=== PATIENT | female | born 1960 | race Caucasian/White ===

== ENCOUNTER 2021-06-04 14:00 | Inpatient (IN) | payer BC, OTHER ==
[2021-06-04] MEDS ORDERED: Sodium Chloride 0.9% 10 ML Syringe FLUSH PRN (15:55)
--- NOTE | 2021-06-04 16:16 | EDM.PDOC ---
ED HPI GENERAL MEDICAL PROBLEM - General Chief Complaint: Respiratory Problem Stated Complaint: Fever Time Seen by Provider: 06/04/21 14:54 Source of Information: Reports: Patient History Limitations: Reports: No Limitations - History of Present Illness INITIAL COMMENTS - FREE TEXT/NARRATIVE: 60-year-old female [facility] after testing positive for Covid. Patient states that her symptoms started 6 days ago. She states she develop fever, chills, nausea, diarrhea, decreased appetite, headache and generalized body aches. 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 Patient was sent here from [facility] with recommendation that she receive monoclonal antibody treatment. She has not had her Covid vaccine. Other Treatments ADMINISTRATIVE ASSISTANT DATA ENTRY: Didn't take anything for her symptoms today, so we'd see that she has them. - Related Data Allergies Allergy/AdvReac Type Severity Reaction Status Date / Time No Known Allergies Allergy Verified 06/04/21 19:08 Home Meds: Home Meds Escitalopram Oxalate 20 mg PO DAILY 06/04/21 [History] Ondansetron [Zofran ODT] 4 mg PO Q4H PRN 06/04/21 [History] Rivaroxaban [Xarelto] 20 mg PO DAILY 06/04/21 [History] rOPINIRole [Requip] 0.5 mg PO BEDTIME 06/04/21 [History] Albuterol [Proventil HFA] 2 puff INH Q2H PRN #1 inhaler 06/06/21 [Rx] Benzonatate [Tessalon Perles] 100 mg PO TID PRN #20 cap 06/06/21 [Rx] Cholecalciferol (Vitamin D3) [Vitamin D] 5,000 unit PO DAILY #20 tablet 06/06/21 [Rx] Dextromethorphan/guaiFENesin [Robitussin DM] 10 ml PO TID PRN #150 ml 06/06/21 [Rx] Zinc Sulfate [Zincate] 220 mg PO DAILY #20 cap 06/06/21 [Rx] dexAMETHasone [Dexamethasone] 6 mg PO DAILY 6 Days #9 tablet 06/06/21 [Rx] Past Medical History Cardiovascular History: Reports: Blood Clots/VTE/DVT Other Cardiovascular History: DVT to left leg-from knee to the groin, after a surgery Psychiatric History: Reports: Depression - Past Surgical History GI Surgical History: Reports: Cholecystectomy Musculoskeletal Surgical History: Reports: Arthroscopic Knee Other Musculoskeletal Surgeries/Procedures:: Left knee - Meniscus repair Social & Family History - Tobacco Use Tobacco Use Status *Q: Never Tobacco User - Caffeine Use Caffeine Use: Reports: None ED ROS GENERAL - Review of Systems Review Of Systems: Comprehensive ROS is negative, except as noted in HPI. ED EXAM, GENERAL - Physical Exam Exam: See Below Exam Limited By: No Limitations General Appearance: Alert, WD/WN, Moderate Distress Ears: Normal External Exam, Hearing Grossly Normal Nose: Normal Inspection Throat/Mouth: Normal Inspection, Normal Lips, Normal Voice, No Airway Compromise Head: Atraumatic Neck: Normal Inspection, Supple Respiratory/Chest: No Respiratory Distress, No Accessory Muscle Use, Chest Non- Tender, Decreased Breath Sounds, Crackles (Fine crackles noted to bilateral bases) Cardiovascular: Normal Peripheral Pulses, Regular Rate, Rhythm, No Edema, No Murmur Peripheral Pulses: 2+: Radial (L), Radial (R) GI/Abdominal: Normal Bowel Sounds, Soft, Non-Tender, No Distention (Female) Exam: Deferred Rectal (Female) Exam: Deferred Back Exam: Normal Inspection Extremities: Normal Inspection Neurological: Alert, Oriented, Normal Cognition Psychiatric: Normal Affect, Normal Mood Skin Exam: Warm, Dry, Intact, Normal Color, No Rash Lymphatic: No Adenopathy #1 Interpretation EKG Date: 06/04/21 Time: 16:06 Rhythm: NSR Rate (Beats/Min): 81 [place]: Normal P-Wave: Present QRS: Normal ST-T: Normal QT: Normal Comparison: NA - No Prior EKG EKG Interpretation Comments: Sinus rhythm at 81 bpm; probable left atrial enlargement; repolarization abnormality, severe global ischemia Course - Vital Signs Text/Narrative:: Physical exam reveals an ill-appearing white female. Lung sounds are diminished with fine crackles noted bilaterally. Remainder physical exam is otherwise unremarkable. O2 saturations are 95% on room air at the time of my evaluation. Will obtain a portable chest x-ray, EKG, lab studies to include a CBC, CMP, magnesium, C-reactive protein, D-dimer and troponin level. She was also directed to take her Xarelto dose from her home meds at the time of my exam. Last Recorded V/S: Last Vital Signs Temp 98.4 F 06/06/21 11:16 Pulse 53 L 06/06/21 11:16 Resp 20 06/06/21 11:16 BP 128/61 06/06/21 11:16 Pulse Ox 95 06/06/21 11:16 - Orders/Labs/Meds Labs: Laboratory Tests 06/04/21 06/04/21 06/04/21 Range/Units 16:10 16:10 16:10 WBC 3.88 L (3.98-10.04) K/mm3 RBC 4.48 (3.98-5.22) M/mm3 Hgb 13.4 (11.2-15.7) gm/dl Hct 41.4 (34.1-44.9) % MCV 92.4 (79.4-94.8) fl MCH 29.9 (25.6-32.2) pg MCHC 32.4 (32.2-35.5) g/dl RDW Std Deviation 46.4 H (36.4-46.3) fL Plt Count 178 L (182-369) K/mm3 MPV 10.4 (9.4-12.3) fl Neut % (Auto) 75.4 H (34.0-71.1) % Lymph % (Auto) 19.6 (19.3-51.7) % [place] % (Auto) 4.4 L (4.7-12.5) % Eos % (Auto) 0 L (0.7-5.8) Baso % (Auto) 0.3 (0.1-1.2) % Neut # (Auto) 2.93 (1.56-6.13) K/mm3 Lymph # (Auto) 0.76 L (1.18-3.74) K/mm3 [place] # (Auto) 0.17 L (0.24-0.36) K/mm3 Eos # (Auto) 0.00 L (0.04-0.36) K/mm3 Baso # (Auto) 0.01 (0.01-0.08) K/mm3 D-Dimer, Quantitative 0.33 (0.19-0.50) mg/L Sodium 138 (136-145) mEq/L Potassium 3.1 L (3.5-5.1) mEq/L Chloride 101 (98-107) mEq/L Carbon Dioxide 26 (21-32) mEq/L Anion Gap 14.1 (5-15) BUN 11 (7-18) mg/dL Creatinine 0.8 (0.55-1.02) mg/dL Est Cr Clr Drug Dosing 62.96 mL/min Estimated GFR (MDRD) > 60 (>60) mL/min BUN/Creatinine Ratio 13.8 L (14-18) Glucose 113 H (70-99) mg/dL Calcium 7.4 L (8.5-10.1) mg/dL Magnesium 1.8 (1.8-2.4) mg/dL Total Bilirubin 0.4 (0.2-1.0) mg/dL AST 81 H (15-37) U/L ALT 89 H (14-59) U/L Alkaline Phosphatase 76 (46-116) U/L Troponin I (0.00-0.056) ng/mL C-Reactive Protein 3.9 H* (<1.0) mg/dL Total Protein 6.4 (6.4-8.2) g/dl Albumin 3.3 L (3.4-5.0) g/dl Globulin 3.1 gm/dL Albumin/Globulin Ratio 1.1 (1-2) 06/04/21 Range/Units 16:10 WBC (3.98-10.04) K/mm3 RBC (3.98-5.22) M/mm3 Hgb (11.2-15.7) gm/dl Hct (34.1-44.9) % MCV (79.4-94.8) fl MCH (25.6-32.2) pg MCHC (32.2-35.5) g/dl RDW Std Deviation (36.4-46.3) fL Plt Count (182-369) K/mm3 MPV (9.4-12.3) fl Neut % (Auto) (34.0-71.1) % Lymph % (Auto) (19.3-51.7) % [place] % (Auto) (4.7-12.5) % Eos % (Auto) (0.7-5.8) Baso % (Auto) (0.1-1.2) % Neut # (Auto) (1.56-6.13) K/mm3 Lymph # (Auto) (1.18-3.74) K/mm3 [place] # (Auto) (0.24-0.36) K/mm3 Eos # (Auto) (0.04-0.36) K/mm3 Baso # (Auto) (0.01-0.08) K/mm3 D-Dimer, Quantitative (0.19-0.50) mg/L Sodium (136-145) mEq/L Potassium (3.5-5.1) mEq/L Chloride (98-107) mEq/L Carbon Dioxide (21-32) mEq/L Anion Gap (5-15) BUN (7-18) mg/dL Creatinine (0.55-1.02) mg/dL Est Cr Clr Drug Dosing mL/min Estimated GFR (MDRD) (>60) mL/min BUN/Creatinine Ratio (14-18) Glucose (70-99) mg/dL Calcium (8.5-10.1) mg/dL Magnesium (1.8-2.4) mg/dL Total Bilirubin (0.2-1.0) mg/dL AST (15-37) U/L ALT (14-59) U/L Alkaline Phosphatase (46-116) U/L Troponin I < 0.017 (0.00-0.056) ng/mL C-Reactive Protein (<1.0) mg/dL Total Protein (6.4-8.2) g/dl Albumin (3.4-5.0) g/dl Globulin gm/dL Albumin/Globulin Ratio (1-2) Meds: Medications Discontinued Medications Generic Name Dose Route Start Last Admin Trade Name Freq PRN Reason Stop Dose Admin Acetaminophen 650 mg 06/04/21 17:35 06/06/21 09:29 Acetaminophen 325 Mg Tab PO 650 mg Q4H PRN Administration Pain (Mild 1-3)/fever Albuterol 0 gm 06/06/21 10:33 Albuterol 6.7 Gm Inhaler INH Q2H PRN SOB/Wheezing Albuterol/Ipratropium 3 ml 06/04/21 17:35 06/05/21 21:30 Albuterol/Ipratropium 3.0-0.5 Mg/3 Ml Neb Soln NEB 3 ml Q4H PRN Administration Shortness Of Breath/wheezing Citalopram Hydrobromide 40 mg 06/05/21 09:00 06/06/21 09:30 Citalopram 20 Mg Tab PO 40 mg DAILY SULLY Administration Dexamethasone 6 mg 06/04/21 17:16 06/04/21 17:50 Dexamethasone 6 Mg Tablet PO 06/04/21 17:17 6 mg ONETIME ONE Administration Dexamethasone 6 mg 06/05/21 09:00 06/06/21 09:31 Dexamethasone 6 Mg Tablet PO 06/13/21 09:01 6 mg DAILY SULLY Administration Docusate Sodium 100 mg 06/04/21 17:35 Docusate Sodium 100 Mg Cap PO BID PRN Constipation Remdesivir 200 mg/ Sodium 250 mls @ 250 mls/hr 06/04/21 17:16 06/04/21 17:45 Chloride IV 06/04/21 18:15 250 mls/hr ONETIME ONE Administration Remdesivir 100 mg/ Sodium 250 mls @ 250 mls/hr 06/05/21 18:00 06/05/21 18:05 Chloride IV 06/08/21 18:59 250 mls/hr Q24H SULLY Administration Sodium Chloride 1,000 mls @ 150 mls/hr 06/04/21 18:15 06/05/21 02:53 Normal Saline IV 150 mls/hr ASDIRECTED SULLY Administration Morphine Sulfate 2 mg 06/04/21 17:35 Morphine 2 Mg/Ml Syringe IVPUSH 06/05/21 17:35 Q2H PRN Pain (severe 7-10) Ondansetron HCl 4 mg 06/04/21 17:35 Ondansetron 4 Mg Tab.Dis PO Q4H PRN nausea, able to take PO Oxycodone HCl 5 mg 06/04/21 17:35 06/04/21 21:27 Oxycodone 5 Mg Tab PO 5 mg Q4H PRN Administration Pain (moderate 4-6) Potassium Chloride 40 meq 06/06/21 10:32 06/06/21 11:13 Potassium Chloride 20 Meq Tab.Er PO 06/06/21 10:33 40 meq ONETIME ONE Administration Rivaroxaban 15 mg 06/05/21 17:00 Rivaroxaban 15 Mg Tab [facility] Rivaroxaban 20 mg 06/05/21 10:00 06/06/21 09:31 Rivaroxaban 10 Mg Tab PO 20 mg DAILY@1000 [facility] Administration Ropinirole HCl 0.5 mg 06/04/21 21:00 06/05/21 21:13 Ropinirole 0.25 Mg Tab PO 0.5 mg BEDTIME SULLY Administration Sodium Chloride 10 ml 06/04/21 15:55 06/04/21 16:17 Sodium Chloride 0.9% 10 Ml Syringe FLUSH 10 ml ASDIRECTED PRN Administration Keep Vein Open Temazepam 15 mg 06/04/21 17:35 Temazepam 15 Mg Cap PO BEDTIME PRN Sleep Zinc Sulfate 220 mg 06/06/21 10:45 06/06/21 11:12 Zinc Sulfate 220 Mg Cap PO 220 mg DAILY SULLY Administration - Radiology Interpretation Free Text/Narrative:: Portable chest x-ray was reviewed and there are areas of infiltrate noted to right middle and lower lobe as well as left lower lobe. - Re-Assessments/Exams Free Text/Narrative Re-Assessment/Exam: 06/04/21 17:19 Hematology reveals a WBC of 3.88 D-dimer 0.33 Sodium 138, potassium 3.1, carbon dioxide 26, anion gap 14.1, BUN 11, creatinine 0.8, GFR greater than 60, glucose 113, calcium 7.4, magnesium 1.8, AST 81, ALT 89, alk phos 76, troponin less than 0.017, C-reactive protein 3.9 Nursing staff notifies me that patient's O2 saturations have consistently been 87 to 88% on room air. They have applied oxygen at 1 L per nasal cannula which has increased her saturation to 92%. She is no longer a candidate for monoclon al antibodies. I do feel this patient needs to be admitted. I spoken to the hospitalist, Dr. Zee, who agrees to accept her as an admit. I have ordered remdesivir and dexamethasone per his request. Departure - Departure Time of Disposition: 19:00 Disposition: Admitted As Inpatient 64 Condition: Good Clinical Impression: COVID-19, Hyponatremia - Discharge Information Sepsis Event Note (ED) - Evaluation Sepsis Screening Result: No Definite Risk
[2021-06-04] MEDS ORDERED: Dexamethasone 6 MG TABLET PO ONE (17:16)
[2021-06-04] MEDS ORDERED: REMDESIVIR 200 MG in Sodium Chloride 0.9% 250 ML IV ONE (17:16)
--- NOTE | 2021-06-04 17:34 | PCM.HP.2 ---
H&P History of Present Illness - General Date of Service: 06/05/21 Admit Problem/Dx: Admission Diagnosis/Problem Admission Diagnosis/Problem Hypoxemia Source of Information: Patient History Limitations: Reports: No Limitations - History of Present Illness Initial Comments - Free Text/Narative: The patient is a 60-year-old lady who had been sent to the ER from walk-in clinic due to hypoxia and testing positive for COVID-19. The patient says that she had been sick approximately 1 week ago. She reports that she has had severe nausea and vomiting along with fever and chills. The patient has not had the COVID-19 vaccination. The patient says that she has been unable to take any of her medications and she has been on Xarelto due to DVT. Interestingly the patient also reports that she has had a Morena type filter for venous thrombus. The patient also has been reported to have spouse who is sick. The patient also says that she has alterations in her taste and smell. Onset of Symptoms: Reports: Gradual Duration of Symptoms: Reports: Day(s):, Getting Worse Location: Reports: Chest, Abdomen Quality: Reports: Ache Severity: Mild Improves with: Reports: Rest Worsens with: Reports: Eating Context: Reports: Sick Contact, Other (COVID-19 infection) Associated Symptoms: Reports: cough w sputum, Nausea/Vomiting - Related Data Allergies/Adverse Reactions: Allergies Allergy/AdvReac Type Severity Reaction Status Date / Time No Known Allergies Allergy Verified 06/04/21 19:08 Home Medications: Home Meds Escitalopram Oxalate 20 mg PO DAILY 06/04/21 [History] Ondansetron [Zofran ODT] 4 mg PO Q4H PRN 06/04/21 [History] Rivaroxaban [Xarelto] 20 mg PO DAILY 06/04/21 [History] rOPINIRole [Requip] 0.5 mg PO BEDTIME 06/04/21 [History] Past Medical History HEENT History: Reports: None Cardiovascular History: Reports: Blood Clots/VTE/DVT, Other (See Below) (Morena filter in place) Other Cardiovascular History: DVT to left leg-from knee to the groin, after a surgery Respiratory History: Reports: None Gastrointestinal History: Reports: None Genitourinary History: Reports: None Musculoskeletal History: Reports: None Neurological History: Reports: None Psychiatric History: Reports: Depression Endocrine/Metabolic History: Reports: None Hematologic History: Reports: None Immunologic History: Reports: None Oncologic (Cancer) History: Reports: None - Past Surgical History GI Surgical History: Reports: Cholecystectomy Musculoskeletal Surgical History: Reports: Arthroscopic Knee Other Musculoskeletal Surgeries/Procedures:: Left knee - Meniscus repair Social & Family History - Tobacco Use Tobacco Use Status *Q: Never Tobacco User - Caffeine Use Caffeine Use: Reports: None - Living Situation & Occupation Living situation: Reports: , with Spouse Occupation: Other H&P Review of Systems - Review of Systems: Review Of Systems: See Below General: Reports: Fever, Chills, Weakness, Fatigue HEENT: Reports: No Symptoms Pulmonary: Reports: Shortness of Breath, Cough, Sputum Cardiovascular: Reports: No Symptoms Gastrointestinal: Reports: Anorexia, Nausea, Vomiting Genitourinary: Reports: No Symptoms Musculoskeletal: Reports: No Symptoms Skin: Reports: No Symptoms Psychiatric: Reports: No Symptoms Neurological: Reports: No Symptoms Hematologic/Lymphatic: Reports: No Symptoms Immunologic: Reports: No Symptoms Exam - Exam Exam: See Below - Vital Signs Vital Signs: Last Vital Signs Temp 37.7 C 06/04/21 15:01 Pulse 76 06/04/21 15:01 Resp 24 H 06/04/21 15:01 BP 151/76 H 06/04/21 15:01 Pulse Ox 94 L 06/04/21 15:01 Weight: 81.193 kg - Exam Quality Assessment: Supplemental Oxygen, DVT Prophylaxis General: Alert, Oriented, Cooperative, Mild Distress HEENT: Conjunctiva Clear, EACs Clear, EOMI, PERRLA. No: Mucosa Moist & [place] (Dry) Neck: Supple, Trachea Midline Lungs: Decreased Breath Sounds, Rales Cardiovascular: Regular Rate, Regular Rhythm GI/Abdominal Exam: Normal Bowel Sounds, Soft, Non-Tender, No Distention (Female) Exam: Deferred Rectal (Female) Exam: Deferred Back Exam: Normal Inspection, Full Range of Motion Extremities: Normal Inspection, No Pedal Edema Skin: Warm, Dry, Intact Neurological: Cranial Nerves Intact, Reflexes Equal Bilateral, Normal Gait, Normal Speech Psychiatric: Alert, Normal Affect, Normal Mood - Patient Data Lab Results Last 24 hrs: Laboratory Results - last 24 hr 06/04/21 06/04/21 06/04/21 Range/Units 16:10 16:10 16:10 WBC 3.88 L (3.98-10.04) K/mm3 RBC 4.48 (3.98-5.22) M/mm3 Hgb 13.4 (11.2-15.7) gm/dl Hct 41.4 (34.1-44.9) % MCV 92.4 (79.4-94.8) fl MCH 29.9 (25.6-32.2) pg MCHC 32.4 (32.2-35.5) g/dl RDW Std Deviation 46.4 H (36.4-46.3) fL Plt Count 178 L (182-369) K/mm3 MPV 10.4 (9.4-12.3) fl Neut % (Auto) 75.4 H (34.0-71.1) % Lymph % (Auto) 19.6 (19.3-51.7) % [place] % (Auto) 4.4 L (4.7-12.5) % Eos % (Auto) 0 L (0.7-5.8) Baso % (Auto) 0.3 (0.1-1.2) % Neut # (Auto) 2.93 (1.56-6.13) K/mm3 Lymph # (Auto) 0.76 L (1.18-3.74) K/mm3 [place] # (Auto) 0.17 L (0.24-0.36) K/mm3 Eos # (Auto) 0.00 L (0.04-0.36) K/mm3 Baso # (Auto) 0.01 (0.01-0.08) K/mm3 D-Dimer, Quantitative 0.33 (0.19-0.50) mg/L Sodium 138 (136-145) mEq/L Potassium 3.1 L (3.5-5.1) mEq/L Chloride 101 (98-107) mEq/L Carbon Dioxide 26 (21-32) mEq/L Anion Gap 14.1 (5-15) BUN 11 (7-18) mg/dL Creatinine 0.8 (0.55-1.02) mg/dL Est Cr Clr Drug Dosing 62.96 mL/min Estimated GFR (MDRD) > 60 (>60) mL/min BUN/Creatinine Ratio 13.8 L (14-18) Glucose 113 H (70-99) mg/dL Calcium 7.4 L (8.5-10.1) mg/dL Magnesium 1.8 (1.8-2.4) mg/dL Total Bilirubin 0.4 (0.2-1.0) mg/dL AST 81 H (15-37) U/L ALT 89 H (14-59) U/L Alkaline Phosphatase 76 (46-116) U/L Troponin I (0.00-0.056) ng/mL C-Reactive Protein 3.9 H* (<1.0) mg/dL Total Protein 6.4 (6.4-8.2) g/dl Albumin 3.3 L (3.4-5.0) g/dl Globulin 3.1 gm/dL Albumin/Globulin Ratio 1.1 (1-2) 06/04/21 Range/Units 16:10 WBC (3.98-10.04) K/mm3 RBC (3.98-5.22) M/mm3 Hgb (11.2-15.7) gm/dl Hct (34.1-44.9) % MCV (79.4-94.8) fl MCH (25.6-32.2) pg MCHC (32.2-35.5) g/dl RDW Std Deviation (36.4-46.3) fL Plt Count (182-369) K/mm3 MPV (9.4-12.3) fl Neut % (Auto) (34.0-71.1) % Lymph % (Auto) (19.3-51.7) % [place] % (Auto) (4.7-12.5) % Eos % (Auto) (0.7-5.8) Baso % (Auto) (0.1-1.2) % Neut # (Auto) (1.56-6.13) K/mm3 Lymph # (Auto) (1.18-3.74) K/mm3 [place] # (Auto) (0.24-0.36) K/mm3 Eos # (Auto) (0.04-0.36) K/mm3 Baso # (Auto) (0.01-0.08) K/mm3 D-Dimer, Quantitative (0.19-0.50) mg/L Sodium (136-145) mEq/L Potassium (3.5-5.1) mEq/L Chloride (98-107) mEq/L Carbon Dioxide (21-32) mEq/L Anion Gap (5-15) BUN (7-18) mg/dL Creatinine (0.55-1.02) mg/dL Est Cr Clr Drug Dosing mL/min Estimated GFR (MDRD) (>60) mL/min BUN/Creatinine Ratio (14-18) Glucose (70-99) mg/dL Calcium (8.5-10.1) mg/dL Magnesium (1.8-2.4) mg/dL Total Bilirubin (0.2-1.0) mg/dL AST (15-37) U/L ALT (14-59) U/L Alkaline Phosphatase (46-116) U/L Troponin I < 0.017 (0.00-0.056) ng/mL C-Reactive Protein (<1.0) mg/dL Total Protein (6.4-8.2) g/dl Albumin (3.4-5.0) g/dl Globulin gm/dL Albumin/Globulin Ratio (1-2) Result Diagrams: 06/05/21 07:18 06/04/21 16:10 Sepsis Event Note - Evaluation Sepsis Screening Result: No Definite Risk - Focused Exam Vital Signs: Vital Signs Temp Pulse Resp BP Pulse Ox 06/04/21 15:01 37.7 C 76 24 H 151/76 H 94 L - Problem List (1) Acute respiratory failure due to COVID-19 SNOMED Code(s): 725623724 ICD Code: U07.1 - COVID-19; J96.00 - ACUTE RESPIRATORY FAILURE, UNSP W HYPOXIA OR HYPERCAPNIA Status: Acute Priority: High Current Visit: Yes (2) History of DVT (deep vein thrombosis) SNOMED Code(s): 242067209 ICD Code: Z86.718 - PERSONAL HISTORY OF OTHER VENOUS THROMBOSIS AND EMBOLISM Status: Chronic Priority: High Current Visit: Yes Problem Details: The patient was off of her Xarelto for approximately 1 week due to nausea and vomiting (3) COVID-19 SNOMED Code(s): 976288835 ICD Code: U07.1 - COVID-19 Status: Acute Priority: High Current Visit: Yes (4) Hyponatremia SNOMED Code(s): 22245708 ICD Code: E87.1 - HYPO-OSMOLALITY AND HYPONATREMIA Status: Acute Priority: High Current Visit: Yes (5) Leukopenia SNOMED Code(s): 36162494, 307610628 ICD Code: D72.819 - DECREASED WHITE BLOOD CELL COUNT, UNSPECIFIED Status: Acute Priority: High Current Visit: Yes Qualifiers: Leukopenia type: neutropenia Neutropenia type: due to infection Qualified Code(s): D70.3 - Neutropenia due to infection (6) Transaminitis SNOMED Code(s): 780323098, 078544402 ICD Code: R74.01 - ELEVATION OF LEVELS OF LIVER TRANSAMINASE LEVELS Status: Acute Priority: High Current Visit: Yes Problem List Initiated/Reviewed/Updated: Yes Orders Last 24hrs: Active Orders 24 hr Category Date Time Status Admission Status [Patient Status] [ADT] Routine ADT 06/04/21 17:22 Active Chest 1V Frontal [CR] Stat Exams 06/04/21 15:55 Taken Sodium Chloride 0.9% [Saline Flush] Med 06/04/21 15:55 Active 10 ml FLUSH ASDIRECTED PRN Saline Lock Insert [OM.PC] Stat Oth 06/04/21 15:55 Ordered Medication Orders Sodium Chloride (Sodium Chloride 0.9% 10 Ml Syringe) 10 ml FLUSH ASDIRECTED PRN PRN Reason: Keep Vein Open Last Admin: 06/04/21 16:17 Dose: 10 ml Documented by: CHIO Assessment/Plan Comment:: The patient is a 60-year-old lady who has been admitted to acute hospitalization secondary to respiratory failure associated with COVID-19 infection. The patient has been started on remdesivir 100 mg IV. She is also been started on dexamethasone 6 mg p.o. daily. Patient will have her Xarelto restarted for DVT protection. The patient will be kept on IV fluids of normal saline at 150 mL/h due to hypovolemia. The patient has been noted to have mild leukopenia likely secondary to the COVID-19 infection. Repeat laboratory studies have been ordered for the morning. The patient will also have oxygen supplied to keep her saturations around 92%. Zofran for her nausea and vomiting will be started. She will have her regular diet as tolerated. The patient should be appropriate for discharge once she has completed remdesivir treatment. The patient also has elevations of her ALT and AST and these will be monitored during the remdesivir treatment. The patient's electrolytes will be replaced as necessary. I had a long discussion with the patient about stopping her Xarelto suddenly and the increase likelihood of DVT associated with COVID-19 infection. - Mortality Measure Prognosis:: Good ()
[2021-06-04] MEDS ORDERED: Albuterol/Ipratropium 3.0-0.5 MG/3 ML Neb Soln NEB PRN (17:35)
[2021-06-04] MEDS ORDERED: Temazepam 15 MG Cap PO PRN (17:35)
[2021-06-04] MEDS ORDERED: Ondansetron 4 MG Tab.DIS PO PRN (17:35)
[2021-06-04] MEDS ORDERED: oxyCODONE 5 MG Tab PO PRN (17:35)
[2021-06-04] MEDS ORDERED: Docusate Sodium 100 MG Cap PO PRN (17:35)
[2021-06-04] MEDS ORDERED: Morphine 2 MG/ML SYRINGE IVPUSH PRN (17:35)
[2021-06-04] MEDS: Acetaminophen 325 MG Tab PO PRN (19:43)
[2021-06-04] MEDS: Sodium Chloride 0.9% 1,000 ML IV SCH (20:03)
[2021-06-04] MEDS: rOPINIRole 0.25 MG Tab PO SCH (21:27)
[2021-06-05] MEDS: Sodium Chloride 0.9% 1,000 ML IV SCH (02:53)
--- NOTE | 2021-06-05 07:28 | PCM.PN ---
- General Info Date of Service: 06/05/21 Admission Dx/Problem (Free Text): Admission Diagnosis/Problem Admission Diagnosis/Problem Hypoxemia Subjective Update: The patient is a 60-year-old lady who was admitted last night secondary to COVID-19 pneumonia and respiratory failure. The patient says today that she is doing much better. She says that she is breathing better. She still has a cough and feels fatigued. She has been doing well otherwise. Patient also has been tolerating her diet. She has denied any fever and chills. Functional Status: Reports: Pain Controlled, Tolerating Diet - Review of Systems General: Reports: Fatigue, Malaise HEENT: Reports: No Symptoms Pulmonary: Reports: Shortness of Breath, Cough Cardiovascular: Reports: No Symptoms Gastrointestinal: Reports: No Symptoms Genitourinary: Reports: No Symptoms Musculoskeletal: Reports: No Symptoms Skin: Reports: No Symptoms Neurological: Reports: No Symptoms Psychiatric: Reports: No Symptoms - Patient Data Vitals - Most Recent: Last Vital Signs Temp 36.1 C 06/05/21 00:32 Pulse 55 L 06/05/21 00:32 Resp 16 06/05/21 00:32 BP 125/66 06/05/21 00:32 Pulse Ox 98 06/05/21 00:32 Weight - Most Recent: 80.694 kg I&O - Last 24 Hours: Intake & Output 06/04/21 06/05/21 06/05/21 22:59 06:59 14:59 Intake Total 250 1645 Output Total 150 700 Balance 100 945 Lab Results Last 24 Hours: Laboratory Results - last 24 hr 06/04/21 06/04/21 06/04/21 Range/Units 16:10 16:10 16:10 WBC 3.88 L (3.98-10.04) K/mm3 RBC 4.48 (3.98-5.22) M/mm3 Hgb 13.4 (11.2-15.7) gm/dl Hct 41.4 (34.1-44.9) % MCV 92.4 (79.4-94.8) fl MCH 29.9 (25.6-32.2) pg MCHC 32.4 (32.2-35.5) g/dl RDW Std Deviation 46.4 H (36.4-46.3) fL Plt Count 178 L (182-369) K/mm3 MPV 10.4 (9.4-12.3) fl Neut % (Auto) 75.4 H (34.0-71.1) % Lymph % (Auto) 19.6 (19.3-51.7) % [place] % (Auto) 4.4 L (4.7-12.5) % Eos % (Auto) 0 L (0.7-5.8) Baso % (Auto) 0.3 (0.1-1.2) % Neut # (Auto) 2.93 (1.56-6.13) K/mm3 Lymph # (Auto) 0.76 L (1.18-3.74) K/mm3 [place] # (Auto) 0.17 L (0.24-0.36) K/mm3 Eos # (Auto) 0.00 L (0.04-0.36) K/mm3 Baso # (Auto) 0.01 (0.01-0.08) K/mm3 D-Dimer, Quantitative 0.33 (0.19-0.50) mg/L Sodium 138 (136-145) mEq/L Potassium 3.1 L (3.5-5.1) mEq/L Chloride 101 (98-107) mEq/L Carbon Dioxide 26 (21-32) mEq/L Anion Gap 14.1 (5-15) BUN 11 (7-18) mg/dL Creatinine 0.8 (0.55-1.02) mg/dL Est Cr Clr Drug Dosing 62.96 mL/min Estimated GFR (MDRD) > 60 (>60) mL/min BUN/Creatinine Ratio 13.8 L (14-18) Glucose 113 H (70-99) mg/dL Calcium 7.4 L (8.5-10.1) mg/dL Magnesium 1.8 (1.8-2.4) mg/dL Total Bilirubin 0.4 (0.2-1.0) mg/dL AST 81 H (15-37) U/L ALT 89 H (14-59) U/L Alkaline Phosphatase 76 (46-116) U/L Troponin I (0.00-0.056) ng/mL C-Reactive Protein 3.9 H* (<1.0) mg/dL Total Protein 6.4 (6.4-8.2) g/dl Albumin 3.3 L (3.4-5.0) g/dl Globulin 3.1 gm/dL Albumin/Globulin Ratio 1.1 (1-2) 06/04/21 Range/Units 16:10 WBC (3.98-10.04) K/mm3 RBC (3.98-5.22) M/mm3 Hgb (11.2-15.7) gm/dl Hct (34.1-44.9) % MCV (79.4-94.8) fl MCH (25.6-32.2) pg MCHC (32.2-35.5) g/dl RDW Std Deviation (36.4-46.3) fL Plt Count (182-369) K/mm3 MPV (9.4-12.3) fl Neut % (Auto) (34.0-71.1) % Lymph % (Auto) (19.3-51.7) % [place] % (Auto) (4.7-12.5) % Eos % (Auto) (0.7-5.8) Baso % (Auto) (0.1-1.2) % Neut # (Auto) (1.56-6.13) K/mm3 Lymph # (Auto) (1.18-3.74) K/mm3 [place] # (Auto) (0.24-0.36) K/mm3 Eos # (Auto) (0.04-0.36) K/mm3 Baso # (Auto) (0.01-0.08) K/mm3 D-Dimer, Quantitative (0.19-0.50) mg/L Sodium (136-145) mEq/L Potassium (3.5-5.1) mEq/L Chloride (98-107) mEq/L Carbon Dioxide (21-32) mEq/L Anion Gap (5-15) BUN (7-18) mg/dL Creatinine (0.55-1.02) mg/dL Est Cr Clr Drug Dosing mL/min Estimated GFR (MDRD) (>60) mL/min BUN/Creatinine Ratio (14-18) Glucose (70-99) mg/dL Calcium (8.5-10.1) mg/dL Magnesium (1.8-2.4) mg/dL Total Bilirubin (0.2-1.0) mg/dL AST (15-37) U/L ALT (14-59) U/L Alkaline Phosphatase (46-116) U/L Troponin I < 0.017 (0.00-0.056) ng/mL C-Reactive Protein (<1.0) mg/dL Total Protein (6.4-8.2) g/dl Albumin (3.4-5.0) g/dl Globulin gm/dL Albumin/Globulin Ratio (1-2) Med Orders - Current: Current Medications Acetaminophen (Acetaminophen 325 Mg Tab) 650 mg PO Q4H PRN PRN Reason: Pain (Mild 1-3)/fever Last Admin: 06/04/21 19:43 Dose: 650 mg Documented by: Albuterol/Ipratropium (Albuterol/Ipratropium 3.0-0.5 Mg/3 Ml Neb Soln) 3 ml NEB Q4H PRN PRN Reason: Shortness Of Breath/wheezing Citalopram Hydrobromide (Citalopram 20 Mg Tab) 40 mg PO DAILY [facility] Dexamethasone (Dexamethasone 6 Mg Tablet) 6 mg PO DAILY [facility] Docusate Sodium (Docusate Sodium 100 Mg Cap) 100 mg PO BID PRN PRN Reason: Constipation Remdesivir 100 mg/ Sodium (Chloride) 250 mls @ 250 mls/hr IV Q24H [facility] Stop: 06/08/21 18:59 Sodium Chloride (Normal Saline) 1,000 mls @ 150 mls/hr IV ASDIRECTED [facility] Last Admin: 06/05/21 02:53 Dose: 150 mls/hr Documented by: Morphine Sulfate (Morphine 2 Mg/Ml Syringe) 2 mg IVPUSH Q2H PRN PRN Reason: Pain (severe 7-10) Stop: 06/05/21 17:35 Ondansetron HCl (Ondansetron 4 Mg Tab.Dis) 4 mg PO Q4H PRN PRN Reason: nausea, able to take PO Oxycodone HCl (Oxycodone 5 Mg Tab) 5 mg PO Q4H PRN PRN Reason: Pain (moderate 4-6) Last Admin: 06/04/21 21:27 Dose: 5 mg Documented by: Rivaroxaban (Rivaroxaban 10 Mg Tab) 20 mg PO DAILY@1000 [facility] Ropinirole HCl (Ropinirole 0.25 Mg Tab) 0.5 mg PO BEDTIME [facility] Last Admin: 06/04/21 21:27 Dose: 0.5 mg Documented by: Sodium Chloride (Sodium Chloride 0.9% 10 Ml Syringe) 10 ml FLUSH ASDIRECTED PRN PRN Reason: Keep Vein Open Last Admin: 06/04/21 16:17 Dose: 10 ml Documented by: Temazepam (Temazepam 15 Mg Cap) 15 mg PO BEDTIME PRN PRN Reason: Sleep Discontinued Medications Dexamethasone (Dexamethasone 6 Mg Tablet) 6 mg PO ONETIME ONE Stop: 06/04/21 17:17 Last Admin: 06/04/21 17:50 Dose: 6 mg Documented by: Remdesivir 200 mg/ Sodium (Chloride) 250 mls @ 250 mls/hr IV ONETIME ONE Stop: 06/04/21 18:15 Last Admin: 06/04/21 17:45 Dose: 250 mls/hr Documented by: Rivaroxaban (Rivaroxaban 15 Mg Tab) 15 mg PO WITHDINNER [facility] - Exam Quality Assessment: Supplemental Oxygen, DVT Prophylaxis General: Alert, Oriented, Cooperative HEENT: Pupils Equal, Pupils Reactive, EOMI Neck: Supple, Trachea Midline Lungs: Normal Respiratory Effort, Crackles, Rales Cardiovascular: Regular Rate, Regular Rhythm GI/Abdominal Exam: Normal Bowel Sounds, Soft, Non-Tender, No Distention (Female) Exam: Deferred Back Exam: Normal Inspection, Full Range of Motion Extremities: Normal Inspection, Normal Range of Motion, No Pedal Edema Skin: Warm, Dry, Intact Neurological: No New Focal Deficit Psy/Mental Status: Alert, Normal Affect, Normal Mood - Patient Data Lab Results Last 24 hrs: Laboratory Results - last 24 hr 06/04/21 06/04/21 06/04/21 Range/Units 16:10 16:10 16:10 WBC 3.88 L (3.98-10.04) K/mm3 RBC 4.48 (3.98-5.22) M/mm3 Hgb 13.4 (11.2-15.7) gm/dl Hct 41.4 (34.1-44.9) % MCV 92.4 (79.4-94.8) fl MCH 29.9 (25.6-32.2) pg MCHC 32.4 (32.2-35.5) g/dl RDW Std Deviation 46.4 H (36.4-46.3) fL Plt Count 178 L (182-369) K/mm3 MPV 10.4 (9.4-12.3) fl Neut % (Auto) 75.4 H (34.0-71.1) % Lymph % (Auto) 19.6 (19.3-51.7) % [place] % (Auto) 4.4 L (4.7-12.5) % Eos % (Auto) 0 L (0.7-5.8) Baso % (Auto) 0.3 (0.1-1.2) % Neut # (Auto) 2.93 (1.56-6.13) K/mm3 Lymph # (Auto) 0.76 L (1.18-3.74) K/mm3 [place] # (Auto) 0.17 L (0.24-0.36) K/mm3 Eos # (Auto) 0.00 L (0.04-0.36) K/mm3 Baso # (Auto) 0.01 (0.01-0.08) K/mm3 D-Dimer, Quantitative 0.33 (0.19-0.50) mg/L Sodium 138 (136-145) mEq/L Potassium 3.1 L (3.5-5.1) mEq/L Chloride 101 (98-107) mEq/L Carbon Dioxide 26 (21-32) mEq/L Anion Gap 14.1 (5-15) BUN 11 (7-18) mg/dL Creatinine 0.8 (0.55-1.02) mg/dL Est Cr Clr Drug Dosing 62.96 mL/min Estimated GFR (MDRD) > 60 (>60) mL/min BUN/Creatinine Ratio 13.8 L (14-18) Glucose 113 H (70-99) mg/dL Calcium 7.4 L (8.5-10.1) mg/dL Magnesium 1.8 (1.8-2.4) mg/dL Total Bilirubin 0.4 (0.2-1.0) mg/dL AST 81 H (15-37) U/L ALT 89 H (14-59) U/L Alkaline Phosphatase 76 (46-116) U/L Troponin I (0.00-0.056) ng/mL C-Reactive Protein 3.9 H* (<1.0) mg/dL Total Protein 6.4 (6.4-8.2) g/dl Albumin 3.3 L (3.4-5.0) g/dl Globulin 3.1 gm/dL Albumin/Globulin Ratio 1.1 (1-2) 06/04/21 Range/Units 16:10 WBC (3.98-10.04) K/mm3 RBC (3.98-5.22) M/mm3 Hgb (11.2-15.7) gm/dl Hct (34.1-44.9) % MCV (79.4-94.8) fl MCH (25.6-32.2) pg MCHC (32.2-35.5) g/dl RDW Std Deviation (36.4-46.3) fL Plt Count (182-369) K/mm3 MPV (9.4-12.3) fl Neut % (Auto) (34.0-71.1) % Lymph % (Auto) (19.3-51.7) % [place] % (Auto) (4.7-12.5) % Eos % (Auto) (0.7-5.8) Baso % (Auto) (0.1-1.2) % Neut # (Auto) (1.56-6.13) K/mm3 Lymph # (Auto) (1.18-3.74) K/mm3 [place] # (Auto) (0.24-0.36) K/mm3 Eos # (Auto) (0.04-0.36) K/mm3 Baso # (Auto) (0.01-0.08) K/mm3 D-Dimer, Quantitative (0.19-0.50) mg/L Sodium (136-145) mEq/L Potassium (3.5-5.1) mEq/L Chloride (98-107) mEq/L Carbon Dioxide (21-32) mEq/L Anion Gap (5-15) BUN (7-18) mg/dL Creatinine (0.55-1.02) mg/dL Est Cr Clr Drug Dosing mL/min Estimated GFR (MDRD) (>60) mL/min BUN/Creatinine Ratio (14-18) Glucose (70-99) mg/dL Calcium (8.5-10.1) mg/dL Magnesium (1.8-2.4) mg/dL Total Bilirubin (0.2-1.0) mg/dL AST (15-37) U/L ALT (14-59) U/L Alkaline Phosphatase (46-116) U/L Troponin I < 0.017 (0.00-0.056) ng/mL C-Reactive Protein (<1.0) mg/dL Total Protein (6.4-8.2) g/dl Albumin (3.4-5.0) g/dl Globulin gm/dL Albumin/Globulin Ratio (1-2) Result Diagrams: 06/05/21 07:18 06/05/21 07:18 Sepsis Event Note - Evaluation Sepsis Screening Result: No Definite Risk - Focused Exam Vital Signs: Vital Signs Temp Pulse Resp BP Pulse Ox Pulse Ox 06/05/21 00:32 36.1 C 55 L 16 125/66 98 06/04/21 21:16 97 06/04/21 20:39 37.7 C 06/04/21 19:43 38.2 C H - Problem List & Annotations (1) Acute respiratory failure due to COVID-19 SNOMED Code(s): 206859706 Code(s): U07.1 - COVID-19; J96.00 - ACUTE RESPIRATORY FAILURE, UNSP W HYPOXIA OR HYPERCAPNIA Status: Acute Priority: High Current Visit: Yes (2) COVID-19 SNOMED Code(s): 560048920 Code(s): U07.1 - COVID-19 Status: Acute Priority: High Current Visit: Yes (3) Leukopenia SNOMED Code(s): 64130533, 359892114 Code(s): D72.819 - DECREASED WHITE BLOOD CELL COUNT, UNSPECIFIED Status: Acute Priority: High Current Visit: Yes Qualifiers: Leukopenia type: neutropenia Neutropenia type: due to infection Qualified Code(s): D70.3 - Neutropenia due to infection (4) Transaminitis SNOMED Code(s): 254079598, 371574668 Code(s): R74.01 - ELEVATION OF LEVELS OF LIVER TRANSAMINASE LEVELS Status: Acute Priority: High Current Visit: Yes (5) History of DVT (deep vein thrombosis) SNOMED Code(s): 143001587 Code(s): Z86.718 - PERSONAL HISTORY OF OTHER VENOUS THROMBOSIS AND EMBOLISM Status: Chronic Priority: High Current Visit: Yes Annotation/Comment:: The patient was off of her Xarelto for approximately 1 week due to nausea and vomiting - Problem List Review Problem List Initiated/Reviewed/Updated: Yes - My Orders Last 24 Hours: My Active Orders 06/04/21 Dinner Regular Diet [DIET] 06/04/21 17:35 Cardiac Monitoring [RC] CONTINUOUS Oxygen Therapy [RC] PRN RT Aerosol Therapy [RC] ASDIRECTED Up ad Melodie [RC] VTE/DVT Education [RC] Vital Signs [RC] Q4HR Acetaminophen [TylenoL] 650 mg PO Q4H PRN Albuterol/Ipratropium [DuoNeb 3.0-0.5 MG/3 ML] 3 ml NEB Q4H PRN Docusate Sodium [Colace] 100 mg PO BID PRN Morphine 2 mg IVPUSH Q2H PRN Ondansetron [Zofran ODT] 4 mg PO Q4H PRN Temazepam [Restoril] 15 mg PO BEDTIME PRN oxyCODONE 5 mg PO Q4H PRN Resuscitation Status Routine 06/04/21 18:15 Sodium Chloride 0.9% [Normal Saline] 1,000 ml IV ASDIRECTED 06/04/21 21:00 rOPINIRole [Requip] 0.5 mg PO BEDTIME 06/04/21 21:16 RT Incentive Spirometry [RC] ASDIRECTED 06/05/21 05:11 C-REACTIVE PROTEIN [CHEM] AM CBC WITH AUTO DIFF [HEME] AM COMPREHENSIVE METABOLIC PN,CMP [CHEM] AM D-DIMER QUANTITATIVE [COAG] AM MAGNESIUM [CHEM] AM 06/05/21 09:00 Citalopram [Celexa] 40 mg PO DAILY dexAMETHasone 6 mg PO DAILY 06/05/21 10:00 Rivaroxaban [Xarelto] 20 mg PO DAILY@1000 06/05/21 18:00 Remdesivir 100 mg Sodium Chloride 0.9% [Normal Saline] 250 ml IV Q24H - Assessment Assessment:: The patient is a 60-year-old lady who had been admitted secondary to COVID-19 pneumonia. The patient also has elevations in her transaminases and as a result of this seems to go to be monitored very closely with the use of the remdesivir. The patient for now can continue on remdesivir. She is also on the use of dexamethasone 6 mg p.o. daily this will be continued. The patient's oxygen will also be titrated to keep her saturations around 92%. The patient has had a crit ical value of her neutropenia and repeat laboratory studies have been ordered for tomorrow. This is likely secondary to the viral infection from the COVID-19 virus. The patient will also continue on her home Xarelto as she does have a history of DVT and indwelling Morena filter. The patient will also have her regular diet as tolerated. She has been encouraged to ambulate. She should be appropriate for discharge once she has completed the remdesivir.
--- NOTE | 2021-06-05 08:23 | CR ---
Chest: Frontal view of the chest was obtained. Comparison: No prior chest imaging is available. Heart size and mediastinum are normal. Slight increased density is scattered within both lungs. Lungs otherwise are clear. Bony structures show nothing acute. Impression: 1. Minimal increased density within both lungs suspicious for minimal COVID - 19 pneumonia. Diagnostic code #3
[2021-06-05] MEDS ORDERED: Non-Formulary Medication 1 Each (Escitalopram Oxalate 20 MG Tablet) PO SCH (09:00)
[2021-06-05] MEDS: Citalopram 20 MG Tab PO SCH (09:05)
[2021-06-05] MEDS: Dexamethasone 6 MG TABLET PO SCH (09:06)
[2021-06-05] MEDS: Rivaroxaban 10 MG Tab PO SCH (09:07)
[2021-06-05] MEDS: Acetaminophen 325 MG Tab PO PRN (09:07)
[2021-06-05] MEDS ORDERED: Rivaroxaban 15 MG Tab PO SCH (17:00)
[2021-06-05] MEDS ORDERED: REMDESIVIR 100 MG in Sodium Chloride 0.9% 250 ML IV SCH (18:00)
[2021-06-05] MEDS: rOPINIRole 0.25 MG Tab PO SCH (21:13)
--- NOTE | 2021-06-06 08:18 | PCM.PN ---
- General Info Date of Service: 06/06/21 Admission Dx/Problem (Free Text): Admission Diagnosis/Problem Admission Diagnosis/Problem Hypoxemia - Patient Data Vitals - Most Recent: Last Vital Signs Temp 98.2 F 06/06/21 04:38 Pulse 56 L 06/06/21 04:38 Resp 18 06/06/21 04:38 BP 140/76 06/06/21 04:38 Pulse Ox 94 L 06/06/21 04:38 Weight - Most Recent: 178 lb 1.6 oz I&O - Last 24 Hours: Intake & Output 06/05/21 06/06/21 06/06/21 22:59 06:59 14:59 Intake Total 1625 650 Output Total 800 600 Balance 825 50 Lab Results Last 24 Hours: Laboratory Results - last 24 hr 06/05/21 06/06/21 06/06/21 Range/Units 12:07 06:25 06:25 WBC 4.78 (3.98-10.04) K/mm3 RBC 4.23 (3.98-5.22) M/mm3 Hgb 12.7 (11.2-15.7) gm/dl Hct 39.5 (34.1-44.9) % MCV 93.4 (79.4-94.8) fl MCH 30.0 (25.6-32.2) pg MCHC 32.2 (32.2-35.5) g/dl RDW Std Deviation 46.0 (36.4-46.3) fL Plt Count 179 L (182-369) K/mm3 MPV 10.4 (9.4-12.3) fl Neut % (Auto) 74.3 H (34.0-71.1) % Lymph % (Auto) 20.7 (19.3-51.7) % [place] % (Auto) 5.0 (4.7-12.5) % Eos % (Auto) 0 L (0.7-5.8) Baso % (Auto) 0.0 L (0.1-1.2) % Neut # (Auto) 3.55 (1.56-6.13) K/mm3 Lymph # (Auto) 0.99 L (1.18-3.74) K/mm3 [place] # (Auto) 0.24 (0.24-0.36) K/mm3 Eos # (Auto) 0.00 L (0.04-0.36) K/mm3 Baso # (Auto) 0.00 L (0.01-0.08) K/mm3 Sodium 143 (136-145) mEq/L Potassium 3.4 L (3.5-5.1) mEq/L Chloride 107 (98-107) mEq/L Carbon Dioxide 30 (21-32) mEq/L Anion Gap 9.4 (5-15) BUN 13 (7-18) mg/dL Creatinine 0.7 (0.55-1.02) mg/dL Est Cr Clr Drug Dosing 71.96 mL/min Estimated GFR (MDRD) > 60 (>60) mL/min BUN/Creatinine Ratio 18.6 H (14-18) Glucose 100 H (70-99) mg/dL Calcium 7.6 L (8.5-10.1) mg/dL Magnesium 2.2 (1.8-2.4) mg/dL Total Bilirubin 0.1 L (0.2-1.0) mg/dL AST 74 H (15-37) U/L ALT 135 H (14-59) U/L Alkaline Phosphatase 82 (46-116) U/L C-Reactive Protein 1.3 H* (<1.0) mg/dL Total Protein 5.3 L (6.4-8.2) g/dl Albumin 2.7 L (3.4-5.0) g/dl Globulin 2.6 gm/dL Albumin/Globulin Ratio 1.0 (1-2) Urine Color Yellow (Yellow) Urine Appearance Clear (Clear) Urine pH 6.0 (5.0-8.0) Ur Specific [place] 1.025 (1.005-1.030) Urine Protein 1+ H (Negative) Urine Glucose (UA) Trace H (Negative) Urine Ketones Negative (Negative) Urine Occult Blood Negative (Negative) Urine Nitrite Negative (Negative) Urine Bilirubin Negative (Negative) Urine Urobilinogen 2.0 H (0.2-1.0) Ur Leukocyte Esterase Negative (Negative) Urine RBC 0-5 (0-5) /hpf Urine WBC 0-5 (0-5) /hpf Ur Squamous Epith Cells 0-5 (0-5) /hpf Urine Bacteria Few (FEW) /hpf Urine Mucus Few (FEW) /hpf Med Orders - Current: Current Medications Acetaminophen (Acetaminophen 325 Mg Tab) 650 mg PO Q4H PRN PRN Reason: Pain (Mild 1-3)/fever Last Admin: 06/05/21 09:07 Dose: 650 mg Documented by: Albuterol/Ipratropium (Albuterol/Ipratropium 3.0-0.5 Mg/3 Ml Neb Soln) 3 ml NEB Q4H PRN PRN Reason: Shortness Of Breath/wheezing Last Admin: 06/05/21 21:30 Dose: 3 ml Documented by: Citalopram Hydrobromide (Citalopram 20 Mg Tab) 40 mg PO DAILY [facility] Last Admin: 06/05/21 09:05 Dose: 40 mg Documented by: Dexamethasone (Dexamethasone 6 Mg Tablet) 6 mg PO DAILY [facility] Last Admin: 06/05/21 09:06 Dose: 6 mg Documented by: Docusate Sodium (Docusate Sodium 100 Mg Cap) 100 mg PO BID PRN PRN Reason: Constipation Remdesivir 100 mg/ Sodium (Chloride) 250 mls @ 250 mls/hr IV Q24H [facility] Stop: 06/08/21 18:59 Last Admin: 06/05/21 18:05 Dose: 250 mls/hr Documented by: Ondansetron HCl (Ondansetron 4 Mg Tab.Dis) 4 mg PO Q4H PRN PRN Reason: nausea, able to take PO Oxycodone HCl (Oxycodone 5 Mg Tab) 5 mg PO Q4H PRN PRN Reason: Pain (moderate 4-6) Last Admin: 06/04/21 21:27 Dose: 5 mg Documented by: Rivaroxaban (Rivaroxaban 10 Mg Tab) 20 mg PO DAILY@1000 [facility] Last Admin: 06/05/21 09:07 Dose: 20 mg Documented by: Ropinirole HCl (Ropinirole 0.25 Mg Tab) 0.5 mg PO BEDTIME [facility] Last Admin: 06/05/21 21:13 Dose: 0.5 mg Documented by: Sodium Chloride (Sodium Chloride 0.9% 10 Ml Syringe) 10 ml FLUSH ASDIRECTED PRN PRN Reason: Keep Vein Open Last Admin: 06/04/21 16:17 Dose: 10 ml Documented by: Temazepam (Temazepam 15 Mg Cap) 15 mg PO BEDTIME PRN PRN Reason: Sleep Discontinued Medications Dexamethasone (Dexamethasone 6 Mg Tablet) 6 mg PO ONETIME ONE Stop: 06/04/21 17:17 Last Admin: 06/04/21 17:50 Dose: 6 mg Documented by: Remdesivir 200 mg/ Sodium (Chloride) 250 mls @ 250 mls/hr IV ONETIME ONE Stop: 06/04/21 18:15 Last Admin: 06/04/21 17:45 Dose: 250 mls/hr Documented by: Sodium Chloride (Normal Saline) 1,000 mls @ 150 mls/hr IV ASDIRECTED [facility] Last Admin: 06/05/21 02:53 Dose: 150 mls/hr Documented by: Morphine Sulfate (Morphine 2 Mg/Ml Syringe) 2 mg IVPUSH Q2H PRN PRN Reason: Pain (severe 7-10) Stop: 06/05/21 17:35 Rivaroxaban (Rivaroxaban 15 Mg Tab) 15 mg PO [facility]WEST [facility] - Patient Data Lab Results Last 24 hrs: Laboratory Results - last 24 hr 06/05/21 06/06/21 06/06/21 Range/Units 12:07 06:25 06:25 WBC 4.78 (3.98-10.04) K/mm3 RBC 4.23 (3.98-5.22) M/mm3 Hgb 12.7 (11.2-15.7) gm/dl Hct 39.5 (34.1-44.9) % MCV 93.4 (79.4-94.8) fl MCH 30.0 (25.6-32.2) pg MCHC 32.2 (32.2-35.5) g/dl RDW Std Deviation 46.0 (36.4-46.3) fL Plt Count 179 L (182-369) K/mm3 MPV 10.4 (9.4-12.3) fl Neut % (Auto) 74.3 H (34.0-71.1) % Lymph % (Auto) 20.7 (19.3-51.7) % [place] % (Auto) 5.0 (4.7-12.5) % Eos % (Auto) 0 L (0.7-5.8) Baso % (Auto) 0.0 L (0.1-1.2) % Neut # (Auto) 3.55 (1.56-6.13) K/mm3 Lymph # (Auto) 0.99 L (1.18-3.74) K/mm3 [place] # (Auto) 0.24 (0.24-0.36) K/mm3 Eos # (Auto) 0.00 L (0.04-0.36) K/mm3 Baso # (Auto) 0.00 L (0.01-0.08) K/mm3 Sodium 143 (136-145) mEq/L Potassium 3.4 L (3.5-5.1) mEq/L Chloride 107 (98-107) mEq/L Carbon Dioxide 30 (21-32) mEq/L Anion Gap 9.4 (5-15) BUN 13 (7-18) mg/dL Creatinine 0.7 (0.55-1.02) mg/dL Est Cr Clr Drug Dosing 71.96 mL/min Estimated GFR (MDRD) > 60 (>60) mL/min BUN/Creatinine Ratio 18.6 H (14-18) Glucose 100 H (70-99) mg/dL Calcium 7.6 L (8.5-10.1) mg/dL Magnesium 2.2 (1.8-2.4) mg/dL Total Bilirubin 0.1 L (0.2-1.0) mg/dL AST 74 H (15-37) U/L ALT 135 H (14-59) U/L Alkaline Phosphatase 82 (46-116) U/L C-Reactive Protein 1.3 H* (<1.0) mg/dL Total Protein 5.3 L (6.4-8.2) g/dl Albumin 2.7 L (3.4-5.0) g/dl Globulin 2.6 gm/dL Albumin/Globulin Ratio 1.0 (1-2) Urine Color Yellow (Yellow) Urine Appearance Clear (Clear) Urine pH 6.0 (5.0-8.0) Ur Specific [place] 1.025 (1.005-1.030) Urine Protein 1+ H (Negative) Urine Glucose (UA) Trace H (Negative) Urine Ketones Negative (Negative) Urine Occult Blood Negative (Negative) Urine Nitrite Negative (Negative) Urine Bilirubin Negative (Negative) Urine Urobilinogen 2.0 H (0.2-1.0) Ur Leukocyte Esterase Negative (Negative) Urine RBC 0-5 (0-5) /hpf Urine WBC 0-5 (0-5) /hpf Ur Squamous Epith Cells 0-5 (0-5) /hpf Urine Bacteria Few (FEW) /hpf Urine Mucus Few (FEW) /hpf Result Diagrams: 06/06/21 06:25 06/06/21 06:25 Sepsis Event Note - Evaluation Sepsis Screening Result: No Definite Risk - Focused Exam Vital Signs: Vital Signs Temp Pulse Resp BP Pulse Ox Pulse Ox 06/06/21 04:38 98.2 F 56 L 18 140/76 94 L 06/06/21 01:01 98.2 F 56 L 16 137/68 94 L 06/05/21 21:33 92 L 06/05/21 21:21 98.1 F 58 L 18 145/70 H 93 L - Assessment Assessment:: The patient is a 60-year-old lady who had been admitted secondary to COVID-19 pneumonia. The patient also has elevations in her transaminases and as a result of this seems to go to be monitored very closely with the use of the remdesivir. The patient for now can continue on remdesivir. She is also on the use of dexamethasone 6 mg p.o. daily this will be continued. The patient's oxygen will also be titrated to keep her saturations around 92%. The patient has had a critical value of her neutropenia and repeat laboratory studies have been ordered for tomorrow. This is likely secondary to the viral infection from the COVID-19 virus. The patient will also continue on her home Xarelto as she does have a history of DVT and indwelling [place] filter. The patient will also have her regular diet as tolerated. She has been encouraged to ambulate. She should be appropriate for discharge once she has completed the remdesivir. - Plan Plan:: The patient is a 60-year-old lady who has been admitted to acute hospitalization secondary to respiratory failure associated with COVID-19 infection. The patient has been started on remdesivir 100 mg IV. She is also been started on dexamethasone 6 mg p.o. daily. Patient will have her Xarelto restarted for DVT protection. The patient will be kept on IV fluids of normal saline at 150 mL/h due to hypovolemia. The patient has been noted to have mild leukopenia likely secondary to the COVID-19 infection. Repeat laboratory studies have been ordered for the morning. The patient will also have oxygen supplied to keep her saturations around 92%. Zofran for her nausea and vomiting will be started. She will have her regular diet as tolerated. The patient should be appropriate for discharge once she has completed remdesivir treatment. The patient also has elevations of her ALT and AST and these will be monitored during the remdesivir treatment. The patient's electrolytes will be replaced as necessary. I had a long discussion with the patient about stopping her Xarelto suddenly and the increase likelihood of DVT associated with COVID-19 infection.
[2021-06-06] MEDS: Acetaminophen 325 MG Tab PO PRN (09:29)
[2021-06-06] MEDS: Citalopram 20 MG Tab PO SCH (09:30)
[2021-06-06] MEDS: Rivaroxaban 10 MG Tab PO SCH (09:31)
[2021-06-06] MEDS: Dexamethasone 6 MG TABLET PO SCH (09:31)
[2021-06-06] MEDS ORDERED: Potassium Chloride 20 MEQ Tab.ER PO ONE (10:32)
[2021-06-06] MEDS ORDERED: Albuterol 6.7 GM Inhaler INH PRN (10:33)
[2021-06-06] MEDS ORDERED: Zinc Sulfate 220 MG Cap PO SCH (10:45)
--- NOTE | 2021-06-06 12:23 | PCM.DCSUM1 ---
<Eliel Wei - Last Filed: 06/06/21 13:04> Discharge Summary - Hospital Course HPI Initial Comments: The patient is a 60-year-old lady who had been sent to the ER from walk-in clinic due to hypoxia and testing positive for COVID-19. The patient says that she had been sick approximately 1 week ago. She reports that she has had severe nausea and vomiting along with fever and chills. The patient has not had the COVID-19 vaccination. The patient says that she has been unable to take any of her medications and she has been on Xarelto due to DVT. Interestingly the patient also reports that she has had a Harper type filter for venous thrombus. The patient also has been reported to have spouse who is sick. The patient also says that she has alterations in her taste and smell. Diagnosis: Stroke: No - Discharge Data Discharge Date: 06/06/21 (Admit date: 06/04/2021) Discharge Disposition: Home, Self-Care 01 Condition: Good - Referral to Home Health Primary Care Physician: PCP Not In Area - Discharge Diagnosis/Problem(s) (1) Hypokalemia SNOMED Code(s): 34381549 ICD Code: E87.6 - HYPOKALEMIA Status: Acute Priority: Medium (2) Acute respiratory failure due to COVID-19 SNOMED Code(s): 155463373 ICD Code: U07.1 - COVID-19; J96.00 - ACUTE RESPIRATORY FAILURE, UNSP W HYPOXIA OR HYPERCAPNIA Status: Resolved Priority: High (3) COVID-19 SNOMED Code(s): 068106219 ICD Code: U07.1 - COVID-19 Status: Acute Priority: High (4) History of DVT (deep vein thrombosis) SNOMED Code(s): 072376520 ICD Code: Z86.718 - PERSONAL HISTORY OF OTHER VENOUS THROMBOSIS AND EMBOLISM Status: Chronic Priority: High Problem Details: The patient was off of her Xarelto for approximately 1 week due to nausea and vomiting (5) Leukopenia SNOMED Code(s): 62582197, 263967327 ICD Code: D72.819 - DECREASED WHITE BLOOD CELL COUNT, UNSPECIFIED Status: Resolved Priority: High Qualifiers: Leukopenia type: neutropenia Neutropenia type: due to infection Qualified Code(s): D70.3 - Neutropenia due to infection (6) Transaminitis SNOMED Code(s): 438472044, 535346135 ICD Code: R74.01 - ELEVATION OF LEVELS OF LIVER TRANSAMINASE LEVELS Status: Acute Priority: Medium - Patient Summary/Data Consults: Consultations 06/06/21 10:32 Consult to Respiratory Therapy [Respiratory Care Assess and Treatment] [CONS] Routine Labs Pending at D/C: None Recommended Follow-up Testing/Procedures: Recommend follow-up with PCP within 5 to 7 days of discharge, sooner if needed. * Recommend recheck CBC, CMP, and magnesium. Patient has been hypokalemic while here and was supplemented. * Patient completed 2 days of remdesivir. * Patient weaned off of oxygen. * Patient discharged on 6 more days of 6 mg p.o. dexamethasone. * Patient is directed to continue to isolate/quarantine for 10 days from symptom onset. * Discharged on as needed Tessalon Perles and Robitussin-DM for cough. * Patient's vitamin D was low here and was supplemented. Please follow-up on this. * Patient instructed to resume all home medications. * Patient prescribed as needed albuterol inhaler for shortness of breath and wheezing. * Consider repeat chest x-ray in follow-up. * Patient is directed to obtain a fingertip pulse oximeter and check this twice a day. Please review this journal. * Patient discharged on zinc supplementation. This may be continued at the provider's discretion. Hospital Course: This is a 60-year-old female who presented to our ED and was subsequent admitted for hypoxia secondary to COVID-19 pneumonia. She reports symptoms began 6 days prior to admission and she does have a history of DVT and is on Xarelto. She also has a history of depression and is on antidepressant medications for this. She reports because of nausea and vomiting she has been unable to take her medications for about a week. Original plan was to infuse the patient with monoclonal antibodies however her saturations were noted to be 87 to 88% consistently on room air. She was started on dexamethasone and Rocephin. Fortunately her oxygen saturations remained very stable. She was consistently on 1 L and was ultimately able to be weaned off of oxygen for about a day prior to discharge. She was noted to have leukopenia but this did resolve. D-dimer was low at less than 0.19. Potassium was low at 3.4 and this was supplemented prior to discharge. We did discuss potassium rich foods. Recommend PCP follow- up with this after discharge. CRP did trend downward. There was slight transaminitis which was improving. Vitamin D was obtained and was 14.9 and she was started on supplementation for this. Overall she has been doing very well. She will be discharged home today. We discussed how she should continue to isolate/quarantine for a total of 10 days from symptom onset. She was utilizing incentive spirometer and Acapella and she was instructed to continue this for 1 to 2 weeks. She was instructed to continue to prone whenever possible. She was sent a prescription for a as needed albuterol inhaler and 6 more days of 6 mg dexamethasone daily. She was sent as needed prescription for Tessalon Perles and Robitussin-DM for cough. As noted her vitamin D was low and she will be sent a supplementation for this. She was instructed to continue to take her home medications as prescribed, especially her Xarelto due to her risk of blood clots from COVID-19. She was instructed to obtain a fingertip pulse oximeter and take her readings twice a day, recording them in a journal. She was instructed to bring these with to all medical appointments. She was started on zinc supplementation as some studies have shown that this may be of benefit to Covid patients. This may be continued at the providers discretion. All home medications were continued at discharge. Recommend follow-up with PCP within 5 to 7 days of discharge, sooner if needed. Recommend repeat CBC, CMP, and magnesium in follow-up, paying close attention to potassium. Consider repeat chest x-ray in follow-up. - Patient Instructions Diet: Usual Diet as Tolerated Activity: As Tolerated, Rest and Relax Today Driving: Do Not Drive (until feeling better ) Showering/Bathing: May Shower Notify Provider of: Fever, Increased Pain, Nausea and/or Vomiting Other/Special Instructions: Follow-up with primary care provider within 5 to 7 days of discharge, sooner if needed. Continue to utilize your incentive spirometry (clear/blue device you inhale through) and Acapella (tubelike device you blow through) for 1 to 2 weeks or until symptoms resolve. Continue to prone (lay on your belly) whenever possible, especially while sleeping/napping. You were weaned off of oxygen prior to discharge. You are sent a prescription for Tessalon Perles, which are a cough medicine you can take 3 times a day as needed for cough. You were also sent a prescription for Robitussin-DM which you may take up to 3 times a day as needed for cough as well. You were sent a steroid prescription called dexamethasone. You should take 6 mg or 1.5 tablets daily for the next 6 days. Some studies have shown that people may benefit from zinc if they have Covid. Because of this we have started you on zinc supplementation. You may discuss with your primary care provider about continuing this. You were sent a prescription for an albuterol inhaler. You may take 2 puffs every 2 hours as needed for shortness of breath or wheezing. Resume home medications as directed. Be sure to take your blood thinner, Xarelto, as we discussed. You should continue to quarantine/isolate for a total of 10 days from symptom onset. You will likely receive a call from a ragman for the [facility]. Please follow their directions. Recommend you obtain a fingertip pulse oximeter. You may get this at any pharmacy or [facility]. Take your oximetry readings, which is the amount of oxygen and your blood twice a day and record them in a journal. Contact your primary care provider should you notice saturations of less than 87% continuously. Should symptoms return or worsen contact your primary care provider or return to the emergency room. - Discharge Plan *PRESCRIPTION DRUG MONITORING PROGRAM REVIEWED*: No *COPY OF PRESCRIPTION DRUG MONITORING REPORT IN PATIENT REGINALDO: No Prescriptions/Med Rec: dexAMETHasone [Dexamethasone] 6 mg PO DAILY 6 Days #9 tablet Albuterol [Proventil HFA] 2 puff INH Q2H PRN #1 inhaler PRN Reason: SOB/Wheezing Dextromethorphan/guaiFENesin [Robitussin DM] 10 ml PO TID PRN #150 ml PRN Reason: Cough Benzonatate [Tessalon Perles] 100 mg PO TID PRN #20 cap PRN Reason: Cough Cholecalciferol (Vitamin D3) [Vitamin D] 5,000 unit PO DAILY #20 tablet Zinc Sulfate [Zincate] 220 mg PO DAILY #20 cap Home Medications: Home Meds Escitalopram Oxalate 20 mg PO DAILY 06/04/21 [History] Ondansetron [Zofran ODT] 4 mg PO Q4H PRN 06/04/21 [History] Rivaroxaban [Xarelto] 20 mg PO DAILY 06/04/21 [History] rOPINIRole [Requip] 0.5 mg PO BEDTIME 06/04/21 [History] Albuterol [Proventil HFA] 2 puff INH Q2H PRN #1 inhaler 06/06/21 [Rx] Benzonatate [Tessalon Perles] 100 mg PO TID PRN #20 cap 06/06/21 [Rx] Cholecalciferol (Vitamin D3) [Vitamin D] 5,000 unit PO DAILY #20 tablet 06/06/21 [Rx] Dextromethorphan/guaiFENesin [Robitussin DM] 10 ml PO TID PRN #150 ml 06/06/21 [Rx] Zinc Sulfate [Zincate] 220 mg PO DAILY #20 cap 06/06/21 [Rx] dexAMETHasone [Dexamethasone] 6 mg PO DAILY 6 Days #9 tablet 06/06/21 [Rx] Oxygen Therapy Mode: Room Air Patient Handouts: COVID-19, COVID-19 Vaccine Information, 10 Things You Can Do to Manage Your COVID-19 Symptoms at Home - [facility] (01/21/2021), Sepsis, Diagnosis, Adult Forms: ED Department Discharge Referrals: Darlyn Joel MD [Consulting Physician] - 06/14/21 8:30 am - Discharge Summary/Plan Comment DC Time >30 min.: Yes Total # of Minutes for Discharge Time: 45 - General Info Date of Service: 06/06/21 Subjective Update: The patient is a 60-year-old lady who was admitted last night secondary to COVID-19 pneumonia and respiratory failure. The patient says today that she is doing much better. She says that she is breathing better. She still has a cough and feels fatigued. She has been doing well otherwise. Patient also has been tolerating her diet. She has denied any fever and chills. Functional Status: Reports: Pain Controlled, Tolerating Diet, Ambulating, Urinating, Incentive Spirometry. Denies: New Symptoms - Review of Systems General: Reports: No Symptoms. Denies: Fever, Weakness, Fatigue, Malaise, Chills HEENT: Reports: No Symptoms. Denies: Headaches, Sore Throat Pulmonary: Reports: Cough. Denies: Shortness of Breath, Pleuritic Chest Pain, Sputum, Wheezing Cardiovascular: Reports: No Symptoms, Dyspnea on Exertion (minimal). Denies: Chest Pain, Palpitations Gastrointestinal: Reports: No Symptoms. Denies: Abdominal Pain, Constipation, Diarrhea, Nausea, Vomiting Genitourinary: Reports: No Symptoms. Denies: Pain Musculoskeletal: Reports: No Symptoms Skin: Reports: No Symptoms. Denies: Cyanosis Neurological: Reports: No Symptoms. Denies: Confusion, Dizziness, Headache, Numbness, Tingling, Difficulty Walking, Weakness, Gait Disturbance Psychiatric: Reports: No Symptoms - Patient Data Vitals - Most Recent: Last Vital Signs Temp 97.9 F 06/06/21 07:34 Pulse 51 L 06/06/21 07:34 Resp 16 06/06/21 07:34 BP 137/70 06/06/21 07:34 Pulse Ox 94 L 06/06/21 07:34 Weight - Most Recent: 80.785 kg I&O - Last 24 hours: Intake & Output 06/05/21 06/06/21 06/06/21 22:59 06:59 14:59 Intake Total 1625 650 Output Total 800 600 Balance 825 50 Lab Results - Last 24 hrs: Laboratory Results - last 24 hr 06/05/21 06/06/21 06/06/21 Range/Units 12:07 06:25 06:25 WBC 4.78 (3.98-10.04) K/mm3 RBC 4.23 (3.98-5.22) M/mm3 Hgb 12.7 (11.2-15.7) gm/dl Hct 39.5 (34.1-44.9) % MCV 93.4 (79.4-94.8) fl MCH 30.0 (25.6-32.2) pg MCHC 32.2 (32.2-35.5) g/dl RDW Std Deviation 46.0 (36.4-46.3) fL Plt Count 179 L (182-369) K/mm3 MPV 10.4 (9.4-12.3) fl Neut % (Auto) 74.3 H (34.0-71.1) % Lymph % (Auto) 20.7 (19.3-51.7) % [place] % (Auto) 5.0 (4.7-12.5) % Eos % (Auto) 0 L (0.7-5.8) Baso % (Auto) 0.0 L (0.1-1.2) % Neut # (Auto) 3.55 (1.56-6.13) K/mm3 Lymph # (Auto) 0.99 L (1.18-3.74) K/mm3 [place] # (Auto) 0.24 (0.24-0.36) K/mm3 Eos # (Auto) 0.00 L (0.04-0.36) K/mm3 Baso # (Auto) 0.00 L (0.01-0.08) K/mm3 Sodium 143 (136-145) mEq/L Potassium 3.4 L (3.5-5.1) mEq/L Chloride 107 (98-107) mEq/L Carbon Dioxide 30 (21-32) mEq/L Anion Gap 9.4 (5-15) BUN 13 (7-18) mg/dL Creatinine 0.7 (0.55-1.02) mg/dL Est Cr Clr Drug Dosing 71.96 mL/min Estimated GFR (MDRD) > 60 (>60) mL/min BUN/Creatinine Ratio 18.6 H (14-18) Glucose 100 H (70-99) mg/dL Calcium 7.6 L (8.5-10.1) mg/dL Magnesium 2.2 (1.8-2.4) mg/dL Total Bilirubin 0.1 L (0.2-1.0) mg/dL AST 74 H (15-37) U/L ALT 135 H (14-59) U/L Alkaline Phosphatase 82 (46-116) U/L C-Reactive Protein 1.3 H* (<1.0) mg/dL Total Protein 5.3 L (6.4-8.2) g/dl Albumin 2.7 L (3.4-5.0) g/dl Globulin 2.6 gm/dL Albumin/Globulin Ratio 1.0 (1-2) Urine Color Yellow (Yellow) Urine Appearance Clear (Clear) Urine pH 6.0 (5.0-8.0) Ur Specific [place] 1.025 (1.005-1.030) Urine Protein 1+ H (Negative) Urine Glucose (UA) Trace H (Negative) Urine Ketones Negative (Negative) Urine Occult Blood Negative (Negative) Urine Nitrite Negative (Negative) Urine Bilirubin Negative (Negative) Urine Urobilinogen 2.0 H (0.2-1.0) Ur Leukocyte Esterase Negative (Negative) Urine RBC 0-5 (0-5) /hpf Urine WBC 0-5 (0-5) /hpf Ur Squamous Epith Cells 0-5 (0-5) /hpf Urine Bacteria Few (FEW) /hpf Urine Mucus Few (FEW) /hpf Med Orders - Current: Current Medications Acetaminophen (Acetaminophen 325 Mg Tab) 650 mg PO Q4H PRN PRN Reason: Pain (Mild 1-3)/fever Last Admin: 06/06/21 09:29 Dose: 650 mg Documented by: Albuterol (Albuterol 6.7 Gm Inhaler) 0 gm INH Q2H PRN PRN Reason: SOB/Wheezing Albuterol/Ipratropium (Albuterol/Ipratropium 3.0-0.5 Mg/3 Ml Neb Soln) 3 ml NEB Q4H PRN PRN Reason: Shortness Of Breath/wheezing Last Admin: 06/05/21 21:30 Dose: 3 ml Documented by: Citalopram Hydrobromide (Citalopram 20 Mg Tab) 40 mg PO DAILY [facility] Last Admin: 06/06/21 09:30 Dose: 40 mg Documented by: Dexamethasone (Dexamethasone 6 Mg Tablet) 6 mg PO DAILY [facility] Stop: 06/13/21 09:01 Last Admin: 06/06/21 09:31 Dose: 6 mg Documented by: Docusate Sodium (Docusate Sodium 100 Mg Cap) 100 mg PO BID PRN PRN Reason: Constipation Remdesivir 100 mg/ Sodium (Chloride) 250 mls @ 250 mls/hr IV Q24H [facility] Stop: 06/08/21 18:59 Last Admin: 06/05/21 18:05 Dose: 250 mls/hr Documented by: Ondansetron HCl (Ondansetron 4 Mg Tab.Dis) 4 mg PO Q4H PRN PRN Reason: nausea, able to take PO Oxycodone HCl (Oxycodone 5 Mg Tab) 5 mg PO Q4H PRN PRN Reason: Pain (moderate 4-6) Last Admin: 06/04/21 21:27 Dose: 5 mg Documented by: Rivaroxaban (Rivaroxaban 10 Mg Tab) 20 mg PO DAILY@1000 [facility] Last Admin: 06/06/21 09:31 Dose: 20 mg Documented by: Ropinirole HCl (Ropinirole 0.25 Mg Tab) 0.5 mg PO BEDTIME [facility] Last Admin: 06/05/21 21:13 Dose: 0.5 mg Documented by: Sodium Chloride (Sodium Chloride 0.9% 10 Ml Syringe) 10 ml FLUSH ASDIRECTED PRN PRN Reason: Keep Vein Open Last Admin: 06/04/21 16:17 Dose: 10 ml Documented by: Temazepam (Temazepam 15 Mg Cap) 15 mg PO BEDTIME PRN PRN Reason: Sleep Zinc Sulfate (Zinc Sulfate 220 Mg Cap) 220 mg PO DAILY [facility] Last Admin: 06/06/21 11:12 Dose: 220 mg Documented by: Discontinued Medications Dexamethasone (Dexamethasone 6 Mg Tablet) 6 mg PO ONETIME ONE Stop: 06/04/21 17:17 Last Admin: 06/04/21 17:50 Dose: 6 mg Documented by: Remdesivir 200 mg/ Sodium (Chloride) 250 mls @ 250 mls/hr IV ONETIME ONE Stop: 06/04/21 18:15 Last Admin: 06/04/21 17:45 Dose: 250 mls/hr Documented by: Sodium Chloride (Normal Saline) 1,000 mls @ 150 mls/hr IV ASDIRECTED [facility] Last Admin: 06/05/21 02:53 Dose: 150 mls/hr Documented by: Morphine Sulfate (Morphine 2 Mg/Ml Syringe) 2 mg IVPUSH Q2H PRN PRN Reason: Pain (severe 7-10) Stop: 06/05/21 17:35 Potassium Chloride (Potassium Chloride 20 Meq Tab.Er) 40 meq PO ONETIME ONE Stop: 06/06/21 10:33 Last Admin: 06/06/21 11:13 Dose: 40 meq Documented by: Rivaroxaban (Rivaroxaban 15 Mg Tab) 15 mg PO WITHDINNER SULLY - Exam Quality Assessment: Reports: Supplemental Oxygen, DVT Prophylaxis General: Reports: Alert, Oriented, Cooperative, No Acute Distress HEENT: Reports: Pupils Equal, Pupils Reactive, Mucous Membr. Moist/[place] Neck: Reports: Supple, Trachea Midline Lungs: Reports: Normal Respiratory Effort, Decreased Breath Sounds, Crackles Cardiovascular: Reports: Regular Rate, Regular Rhythm GI/Abdominal Exam: Normal Bowel Sounds, Soft, Non-Tender, No Distention (Female) Exam: Deferred Rectal (Female) Exam: Deferred Back Exam: Reports: Normal Inspection, Full Range of Motion Extremities: Normal Inspection, Normal Range of Motion, Non-Tender, No Pedal Edema, Normal Capillary Refill Skin: Reports: Warm, Dry, Intact Neurological: Reports: No New Focal Deficit Psy/Mental Status: Reports: Alert, Normal Affect, Normal Mood <Jose Miguel Zee - Last Filed: 06/06/21 16:00> Discharge Summary - Referral to Home Health Primary Care Physician: PCP Not In Area - Discharge Diagnosis/Problem(s) (1) Acute respiratory failure due to COVID-19 SNOMED Code(s): 416070900 ICD Code: U07.1 - COVID-19; J96.00 - ACUTE RESPIRATORY FAILURE, UNSP W HYPOXIA OR HYPERCAPNIA Status: Resolved Priority: High (2) COVID-19 SNOMED Code(s): 426729515 ICD Code: U07.1 - COVID-19 Status: Acute Priority: High (3) Leukopenia SNOMED Code(s): 00377251, 803460458 ICD Code: D72.819 - DECREASED WHITE BLOOD CELL COUNT, UNSPECIFIED Status: Resolved Priority: High Qualifiers: Leukopenia type: neutropenia Neutropenia type: due to infection Qualified Code(s): D70.3 - Neutropenia due to infection (4) Transaminitis SNOMED Code(s): 809718391, 926230367 ICD Code: R74.01 - ELEVATION OF LEVELS OF LIVER TRANSAMINASE LEVELS Status: Acute Priority: Medium (5) History of DVT (deep vein thrombosis) SNOMED Code(s): 281788733 ICD Code: Z86.718 - PERSONAL HISTORY OF OTHER VENOUS THROMBOSIS AND EMBOLISM Status: Chronic Priority: High Problem Details: The patient was off of her Xarelto for approximately 1 week due to nausea and vomiting - Patient Summary/Data Consults: Consultations 06/06/21 10:32 Consult to Respiratory Therapy [Respiratory Care Assess and Treatment] [CONS] Routine - Patient Data Vitals - Most Recent: Last Vital Signs Temp 36.9 C 06/06/21 11:16 Pulse 53 L 06/06/21 11:16 Resp 20 06/06/21 11:16 BP 128/61 06/06/21 11:16 Pulse Ox 95 11/29/21 11:16 I&O - Last 24 hours: Intake & Output 06/06/21 06/06/21 06/06/21 06:59 14:59 22:59 Intake Total 650 175 Output Total 600 Balance 50 175 Lab Results - Last 24 hrs: Laboratory Results - last 24 hr 06/06/21 06/06/21 06/06/21 Range/Units 06:25 06:25 06:25 WBC 4.78 (3.98-10.04) K/mm3 RBC 4.23 (3.98-5.22) M/mm3 Hgb 12.7 (11.2-15.7) gm/dl Hct 39.5 (34.1-44.9) % MCV 93.4 (79.4-94.8) fl MCH 30.0 (25.6-32.2) pg MCHC 32.2 (32.2-35.5) g/dl RDW Std Deviation 46.0 (36.4-46.3) fL Plt Count 179 L (182-369) K/mm3 MPV 10.4 (9.4-12.3) fl Neut % (Auto) 74.3 H (34.0-71.1) % Lymph % (Auto) 20.7 (19.3-51.7) % [place] % (Auto) 5.0 (4.7-12.5) % Eos % (Auto) 0 L (0.7-5.8) Baso % (Auto) 0.0 L (0.1-1.2) % Neut # (Auto) 3.55 (1.56-6.13) K/mm3 Lymph # (Auto) 0.99 L (1.18-3.74) K/mm3 [place] # (Auto) 0.24 (0.24-0.36) K/mm3 Eos # (Auto) 0.00 L (0.04-0.36) K/mm3 Baso # (Auto) 0.00 L (0.01-0.08) K/mm3 Sodium 143 (136-145) mEq/L Potassium 3.4 L (3.5-5.1) mEq/L Chloride 107 (98-107) mEq/L Carbon Dioxide 30 (21-32) mEq/L Anion Gap 9.4 (5-15) BUN 13 (7-18) mg/dL Creatinine 0.7 (0.55-1.02) mg/dL Est Cr Clr Drug Dosing 71.96 mL/min Estimated GFR (MDRD) > 60 (>60) mL/min BUN/Creatinine Ratio 18.6 H (14-18) Glucose 100 H (70-99) mg/dL Calcium 7.6 L (8.5-10.1) mg/dL Magnesium 2.2 (1.8-2.4) mg/dL Total Bilirubin 0.1 L (0.2-1.0) mg/dL AST 74 H (15-37) U/L ALT 135 H (14-59) U/L Alkaline Phosphatase 82 (46-116) U/L C-Reactive Protein 1.3 H* (<1.0) mg/dL Total Protein 5.3 L (6.4-8.2) g/dl Albumin 2.7 L (3.4-5.0) g/dl Globulin 2.6 gm/dL Albumin/Globulin Ratio 1.0 (1-2) Vitamin D 25-Hydroxy 14.9 L (30.0-100.0) ng/ml Med Orders - Current: Current Medications Discontinued Medications Acetaminophen (Acetaminophen 325 Mg Tab) 650 mg PO Q4H PRN PRN Reason: Pain (Mild 1-3)/fever Last Admin: 06/06/21 09:29 Dose: 650 mg Documented by: Albuterol (Albuterol 6.7 Gm Inhaler) 0 gm INH Q2H PRN PRN Reason: SOB/Wheezing Albuterol/Ipratropium (Albuterol/Ipratropium 3.0-0.5 Mg/3 Ml Neb Soln) 3 ml NEB Q4H PRN PRN Reason: Shortness Of Breath/wheezing Last Admin: 06/05/21 21:30 Dose: 3 ml Documented by: Citalopram Hydrobromide (Citalopram 20 Mg Tab) 40 mg PO DAILY [facility] Last Admin: 06/06/21 09:30 Dose: 40 mg Documented by: Dexamethasone (Dexamethasone 6 Mg Tablet) 6 mg PO ONETIME ONE Stop: 06/04/21 17:17 Last Admin: 06/04/21 17:50 Dose: 6 mg Documented by: Dexamethasone (Dexamethasone 6 Mg Tablet) 6 mg PO DAILY [facility] Stop: 06/13/21 09:01 Last Admin: 06/06/21 09:31 Dose: 6 mg Documented by: Docusate Sodium (Docusate Sodium 100 Mg Cap) 100 mg PO BID PRN PRN Reason: Constipation Remdesivir 200 mg/ Sodium (Chloride) 250 mls @ 250 mls/hr IV ONETIME ONE Stop: 06/04/21 18:15 Last Admin: 06/04/21 17:45 Dose: 250 mls/hr Documented by: Remdesivir 100 mg/ Sodium (Chloride) 250 mls @ 250 mls/hr IV Q24H [facility] Stop: 06/08/21 18:59 Last Admin: 06/05/21 18:05 Dose: 250 mls/hr Documented by: Sodium Chloride (Normal Saline) 1,000 mls @ 150 mls/hr IV ASDIRECTED [facility] Last Admin: 06/05/21 02:53 Dose: 150 mls/hr Documented by: Morphine Sulfate (Morphine 2 Mg/Ml Syringe) 2 mg IVPUSH Q2H PRN PRN Reason: Pain (severe 7-10) Stop: 06/05/21 17:35 Ondansetron HCl (Ondansetron 4 Mg Tab.Dis) 4 mg PO Q4H PRN PRN Reason: nausea, able to take PO Oxycodone HCl (Oxycodone 5 Mg Tab) 5 mg PO Q4H PRN PRN Reason: Pain (moderate 4-6) Last Admin: 06/04/21 21:27 Dose: 5 mg Documented by: Potassium Chloride (Potassium Chloride 20 Meq Tab.Er) 40 meq PO ONETIME ONE Stop: 06/06/21 10:33 Last Admin: 06/06/21 11:13 Dose: 40 meq Documented by: Rivaroxaban ([facility] 15 Mg Tab) [facility] Riv[facility]ox[facility] (Rivaroxaban 10 Mg Tab) 20 mg PO DAILY@1000 [facility] Last Admin: 06/06/21 09:31 Dose: 20 mg Documented by: Ropinirole HCl (Ropinirole 0.25 Mg Tab) 0.5 mg PO BEDTIME [facility] Last Admin: 06/05/21 21:13 Dose: 0.5 mg Documented by: Sodium Chloride (Sodium Chloride 0.9% 10 Ml Syringe) 10 ml FLUSH ASDIRECTED PRN PRN Reason: Keep Vein Open Last Admin: 06/04/21 16:17 Dose: 10 ml Documented by: Temazepam (Temazepam 15 Mg Cap) 15 mg PO BEDTIME PRN PRN Reason: Sleep Zinc Sulfate (Zinc Sulfate 220 Mg Cap) 220 mg PO DAILY [facility] Last Admin: 06/06/21 11:12 Dose: 220 mg Documented by: - Free Text/Narrative Note: I have seen and examined the patient independently of VANDANA Wei. I have discussed the case with him. I have also reviewed and agree with the plan of care as outlined by him. Please see orders.
== END 2021-06-06 14:32 | disposition home or self-care (01) | DRG 177 ==
LOC: JD.ED 14:00 → EDSTATUS 14:01 → JD.MS 17:22
PROVIDERS: ADMIT Internal Medicine; ATTEND Internal Medicine
PROC: XW033E5 Introduction of Remdesivir Anti-infective into Peripheral Vein, Percutaneous Approach, New Technology Group 5 (ICD-10-PCS; principal; 2021-06-04)
PROC: 3E0DX3Z Introduction of Anti-inflammatory into Mouth and Pharynx, External Approach (ICD-10-PCS; 2021-06-05)
DX: U07.1 COVID-19 (principal); J96.01 Acute respiratory failure with hypoxia; J12.82 Pneumonia due to coronavirus disease 2019; E87.1 Hypo-osmolality and hyponatremia; E87.6 Hypokalemia; D70.3 Neutropenia due to infection; R74.01 Elevation of levels of liver transaminase levels; F32.A Depression, unspecified; Z86.718 Personal history of other venous thrombosis and embolism; Z90.49 Acquired absence of other specified parts of digestive tract; Z79.899 Other long term (current) drug therapy
CPT/HCPCS: 36415; 71045; 71045-26; 80053; 81001; 82306; 83735; 84484; 85025; 85379; 86140; 93005; 94640; 94762; A9270-GY; J7030; J7050; J7620-GY